=== PATIENT | male | born 1945 | race Caucasian/White ===

== ENCOUNTER → 2021-08-22 | Day surgery (SDC) | payer MEDICARE ==
[2021-08-20 09:41] VITALS: BMI 24.7
[~2021-08-22] MED LIST: ACETAMINOPHEN TAB 325 MG TAB PO SCH; ACETAMINOPHEN TAB 500 MG TAB PO PRN; BUPIVACAINE (PF) 0.25% 30 ML VIAL SQ ONE; DEXAMETHASONE SOD PHOSPHATE 4 MG/ML 1 ML VIAL IV ONE; HEPARIN SODIUM,PORCINE/PF 5,000 UNIT/0.5 ML SYRINGE SQ PRN; HYDROmorphone 0.5 MG/0.5 ML SYRINGE IVP PRN; IBUPROFEN 600 MG TAB PO SCH; LACTATED RINGERS 1,000 ML IV ONE; LACTATED RINGERS 1,000 ML IV SCH; LIDOCAINE 1% (10MG/ML) FOR IV START INTRADERMA PRN; ONDANSETRON 4 MG/2 ML VIAL IVP ONE; TAMSULOSIN 0.4 MG CAP.ER.24H PO ONE
[2021-08-22 08:35] LABS: HCT 40.1 % (39.0-53.0); HGB 14.2 gm/dL (13.0-17.5); MCHC 35.5 g/dL (31.0-37.0); MCV 93.1 fL (80.0-100.0); Mean Platelet Volume 7.7; Platelet Count 170 k/uL (150-450); RBC 4.31 m/uL (4.30-5.90); RDW 12.7 % (11.5-15.5); WBC 3.8 k/uL (3.8-10.6)
--- NOTE | 2021-08-22 08:36 | P.GSHP ---
History of Present Illness H&P Date: 08/22/21 Chief Complaint: Recurrent right inguinal hernia 76-year-old male underwent previous open repair of a right inguinal hernia in 1991. Diagnosed with a recurrent hernia that has gradually increased in size and symptoms. Here today for elective repair recurrent right inguinal hernia. No symptoms on the left. Past Medical History Past Medical History: Hyperlipidemia, Hypertension History of Any Multi-Drug Resistant Organisms: None Reported Past Surgical History: Hernia Repair Additional Past Surgical History / Comment(s): 1991 rt inguinal hernia w/ mesh,n ella procedure Past Anesthesia/Blood Transfusion Reactions: No Reported Reaction Additional Past Anesthesia/Blood Transfusion Reaction / Comment(s): no hx blood transfusion Smoking Status: Never smoker - Past Family History Father Family Medical History: Myocardial Infarction ([place]) Mother Additional Family Medical History / Comment(s): enlarged heart Medications and Allergies Home Medications Medication Instructions Recorded Confirmed Type Garlic 1 each PO DAILY 08/20/21 08/22/21 History Krill Oil 500 mg PO DAILY 08/20/21 08/22/21 History Multivitamins, Thera [Multivitamin 1 tab PO DAILY 08/20/21 08/22/21 History (formulary)] Saw [place] 500 mg PO DAILY 08/20/21 08/22/21 History Turmeric Root Extract [Turmeric] 500 mg PO DAILY 08/20/21 08/22/21 History lisinopriL [Zestril] 5 mg PO QAM 08/20/21 08/22/21 History Allergies Allergy/AdvReac Type Severity Reaction Status Date / Time No Known Allergies Allergy Verified 08/22/21 07:48 Surgical - Exam Vital Signs Temp Pulse Resp BP Pulse Ox 97.2 F L 71 16 150/75 97 08/22/21 07:45 08/22/21 07:45 08/22/21 07:45 08/22/21 07:45 08/22/21 07:45 Physical exam: General: Well-developed, well-nourished HEENT: Normocephalic, sclerae nonicteric Abdomen: Nontender, nondistended, reducible moderate-sized right inguinal hernia Extremities: No edema Neuro: Alert and oriented Assessment and Plan (1) Recurrent right inguinal hernia Narrative/Plan: Will proceed with repair recurrent right inguinal hernia. This will be performed laparoscopically with da Noelle robot with mesh, possible open, possible bilateral. Risks of bleeding, infection, recurrence, bladder and bowel injury, numbness, nerve injury, conversion to an open procedure were discussed with the patient. The patient understands and wishes to proceed. Current Visit: Yes Status: Acute Code(s): K40.91 - UNILATERAL INGUINAL HERNIA, W/O OBST OR GANGRENE, RECURRENT SNOMED Code(s): 591324206
--- NOTE | 2021-08-22 11:19 | P.OP ---
Date of Procedure: 08/22/21 Procedure(s) Performed: PREOPERATIVE DIAGNOSIS: Recurrent right inguinal hernia POSTOPERATIVE DIAGNOSIS: Same PROCEDURE: Repair recurrent right inguinal hernia laparoscopically with da Noelle assisted with mesh SURGEON: Dr. Mendoza ANESTHESIA: General OPERATIVE PROCEDURE DETAILS: Patient was placed in the operating table in the supine position. The patient was placed under general anesthesia. The abdomen was prepped and draped in usual sterile fashion. A small curvilinear supraumbilical incision was made. The fascia was retracted anteriorly with Magdalena forceps. The Veress needle was inserted. The saline drop test was normal. Insufflation took place to 15 mmHg. An 8 mm trocar was placed into the peritoneal cavity. 2 additional 8 mm trochars were placed in the right upper quadrant and left upper quadrant under visualization. The robotic arms were then brought in and docked into place. The fenestrated bipolar was used in the left arm and the laparoscopic al was utilized in the right arm. A 30 8 mm scope was used in the up position. The peritoneal cavity was inspected. Patient had an obvious large recurrent indirect right inguinal hernia. I could visualize some sutures from the previous repair. The peritoneum was incised in a horizontal fashion cephalad to the internal inguinal ring. Following that careful dissection of the preperitoneal space took place. This took place using both electrocautery, sharp dissection but primarily blunt dissection. Visualization of the pubic tubercle and Brian's ligament took place medially. Full dissection took place laterally as well. The hernia sac was fully dissected. Once we had adequate space the extra-large Bard 3-D mid mesh was advanced into the preperitoneal space and flattened out appropriately to cover all potential hernia sites. No sutures were used. The peritoneal defect was then closed using a absorbable 2-0 VLok suture. The hernia sac was incorporated into the peritoneal closure to help prevent future recurrence. The pneumoperitoneum was then evacuated. The skin of all 3 sites was closed using a 4-0 Monocryl stitch. Skin glue was then applied. HERNIA CHARACTERISTICS: Length: Approximately 10 cm Width: 2 cm Type: Recurrent inguinal TYPE OF MESH USED: Bard 3-D mid extra-large LOCATION OF MESH: Preperitoneal FIXATION: None DISPOSITION: Stable to recovery room
[2021-08-22 11:35] VITALS: TEMP 97.4
[2021-08-22 17:49] VITALS: BP 128/74; PULSE 70; RESP 8
== END ==
LOC: OR 06:58
PROVIDERS: ATTEND Surgery
DX: K40.91 Unilateral inguinal hernia, without obstruction or gangrene, recurrent (principal); E78.5 Hyperlipidemia, unspecified; I10 Essential (primary) hypertension; Z82.49 Family history of ischemic heart disease and other diseases of the circulatory system; I25.2 Old myocardial infarction
CPT/HCPCS: 49651; 93005; 85027; C1781; J1100; J0690; J2405; J1170; J1644

== ENCOUNTER → 2022-07-13 | Outpatient (CLI) | payer MEDICARE ==
--- NOTE | 2022-07-14 16:26 | NM ---
EXAMINATION TYPE: NM stress cardiolite complete DATE OF EXAM: 07/13/2022 COMPARISON: NONE HISTORY: I 25.10 TECHNIQUE: After the intravenous administration of 9.8 mCi Tc 99m Sestamibi - Rest images obtained 4 5 minutes post injection. The patient exercised using a CHAD protocol and 1 minute prior to peak e xercise was injected with 25.6 mCi Tc 99m Sestamibi - Stress images obtained 30 minutes post injectio n. FINDINGS: Targeted heart rate was achieved during performance of the study, patient achieved 103% predicted max imal heart rate. Review of stress and rest SPECT images demonstrates decreased uptake along the infer ior wall the left ventricle greater on rest images than on stress, some gut activity suspected. Towar ds the base the heart there is some decreased uptake along the septum greater on stress than on rest images. Gated analysis shows normal wall motion with an estimated left ventricular ejection fraction of 56 %. 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 Suspect denisse-infarct stress- induced left ventricular myocardial ischemia along the septum towards the base of the heart A Yellow level critical message alert has been initiated for Anjel Swenson MD via the [facility] Critical Results System on 07/14/2022 1:23 PM. This message alert has been sent to Anjel Swenson MD via the preferences provided by the clinician for the receipt of Radiology Critical Findings. Message ID [id number].
== END | disposition home or self-care (01) ==
LOC: RADNMMAIN 08:07
PROVIDERS: ATTEND Internal Medicine
DX: I25.10 Atherosclerotic heart disease of native coronary artery without angina pectoris (principal)
CPT/HCPCS: 93017; 78452; A9500

== ENCOUNTER → 2022-07-30 | Outpatient (CLI) | payer MEDICARE ==
[2022-07-31 05:05] LABS: HCT 42.5 % (39.6-50.0); HGB 14.1 g/dL (13.0-17.0); MCHC 33.2 g/dL (32.0-37.0); MCV 96.4 fL (80.0-97.0); Mean Platelet Volume 9.9 fL (9.5-12.2); NRBC Per 100 WBC 0 /100 WBCS (0.0-0.0); Platelet Count 192 X 10*3/uL (140-440); RBC 4.41 X 10*6/uL (4.40-5.60); RDW 12.1 % (11.5-14.5); WBC 3.79 X 10*3/uL (4.50-10.00)
[2022-07-31 05:07] LABS: African American GFR (CKD) 96.5 (60.0-200.0); Anion Gap 9.6 mmol/L (10.00-18.00); Blood Urea Nitrogen 23.3 mg/dL (9.0-27.0); Carbon Dioxide 25.4 mmol/L (20.0-27.5); Non-African American GFR(CKD) 83.3 (60.0-200.0); Potassium 4.5 mmol/L (3.5-5.5)
== END | disposition home or self-care (01) ==
LOC: LABPAT 14:10
PROVIDERS: ATTEND Internal Medicine Interventional Cardiology
DX: Z01.812 Encounter for preprocedural laboratory examination (principal); R94.39 Abnormal result of other cardiovascular function study
CPT/HCPCS: 80051; 82565; 84520; 85027

== ENCOUNTER 2022-08-10 06:30 | Day surgery (SDC) | payer MEDICARE ==
[2022-08-10] MEDS ORDERED: ALPRAZolam 0.5 MG TAB PO PRN (06:33)
[2022-08-10] MEDS ORDERED: NITROGLYCERIN SL TABS 0.4 MG TAB SUBLINGUAL PRN ×2 (06:33→08:53)
[2022-08-10] MEDS ORDERED: ASPIRIN 325 MG TAB PO STA (06:33)
[2022-08-10] MEDS ORDERED: HEPARIN SODIUM,PORCINE 2,500 UNIT in SODIUM CHLORIDE 0.9% 250 ML IRRIGATION PRN (06:33)
[2022-08-10] MEDS ORDERED: ALPRAZolam 0.25 MG TAB PO PRN (06:33)
[2022-08-10] MEDS ORDERED: HEPARIN SODIUM,PORCINE 10,000 UNIT in SODIUM CHLORIDE 0.9% 1,000 ML IRRIGATION PRN (06:33)
[2022-08-10] MEDS ORDERED: ATORVASTATIN 80 MG TAB PO STA (06:33)
[2022-08-10] MEDS ORDERED: SODIUM CHLORIDE 0.9% 1,000 ML IV ONE (06:38)
[2022-08-10] MEDS ORDERED: VERAPAMIL 2.5 MG/ML 2 ML AMP ONE (07:12)
[2022-08-10] MEDS ORDERED: HEPARIN SODIUM 1,000 UN/ML (10ML VL) ONE (07:27)
[2022-08-10] MEDS ORDERED: fentaNYL (PF) 50 MCG/ML 2 ML AMP ONE (07:27)
[2022-08-10] MEDS ORDERED: fentaNYL (PF) 50 MCG/ML 2 ML AMP IV ONE (07:37)
[2022-08-10] MEDS ORDERED: LIDOCAINE 1% INJ 10MG/ML (30 ML VIAL-PF) SQ ONE (07:37)
[2022-08-10] MEDS ORDERED: VERAPAMIL SYRINGE (5 MG/10 ML) INTRAARTER ONE (07:40)
[2022-08-10] MEDS: HEPARIN SODIUM 1,000 UN/ML (10ML VL) IV ONE ×3 (07:46→08:48)
[2022-08-10] MEDS ORDERED: CLOPIDOGREL 75 MG TAB ONE (07:52)
[2022-08-10] MEDS ORDERED: CLOPIDOGREL 75 MG TAB PO ONE (07:56)
[2022-08-10] MEDS ORDERED: IOPAMIDOL-370 125ML BTL INJ ONE (08:09)
[2022-08-10] MEDS ORDERED: IOPAMIDOL-370 100ML BTL INJ ONE (08:48)
[2022-08-10] MEDS ORDERED: ZOLPIDEM 5 MG TAB PO PRN (08:53)
[2022-08-10] MEDS ORDERED: ATROPINE SULFATE 0.1 MG/ML 10ML SYRINGE IV PRN (08:53)
[2022-08-10] MEDS ORDERED: MAG HYDROX/AL HYDROX/SIMETH 30 ML CUP PO PRN (08:53)
[2022-08-10] MEDS ORDERED: RX INFO: IV CONTRAST WAS GIVEN 1 EACH MISC MISCELLANE PRN (08:53)
[2022-08-10] MEDS ORDERED: SODIUM CHLORIDE 0.9% 1,000 ML in EMPTY BAG 1 BAG IV SCH (09:00)
--- NOTE | 2022-08-10 09:03 | P.CARDCATH ---
Date of Procedure: 08/10/22 Description of Procedure: Cardiac Catheterization: The patient is a 77-year-old male with a known history of hypertension, hyperlipidemia who has been complaining of progressive dyspnea on exertion. He had an abnormal calcium score and had an abnormal MPI. Recommendations were made regarding cardiac catheterization, the risks and the complications were discussed with the patient who is in full understanding and agreement. Procedure Description: Patient was brought to catheter finisher and inspector in fasting semi-sedated state after receiving Fentanyl and Benadryl achieiving moderate conscious sedated state. Using Xylocaine Anesthesia and Seldinger technique, a 6-Icelandic sheath was introduced in the right radial artery . Subsequently, selective coronary angiography was performed using a 5-Icelandic 3.5 bend Aden catheter. Multiple views of the coronary artery including hemiaxial views were obtained. The 5-Icelandic Pigatail catheter was used to cross the aortic valve and LVEDP was calculated. After removing the catheter a 6-Icelandic EBU 3.75 guiding catheter was introduced into system, after cannulating the left main a 0.014 balanced medium J-wire was introduced and positioned in the distal LAD subsequently a 3.5 x 23 mm Xience lisa point stent was advanced and deployed at 16 jessa, after removing the balloon 3.75 x 15 mm NC Treck was advanced and inflation at 12 jessa was done. After obtaining images the wire was advanced into the left circumflex with the help of a super cross microcatheter and positioned distally. After removing the microcatheter 2.5 x 12 mm Treck was advanced and multiple inflation at 8 jessa were done. After removing the balloon and with the help of a 6-Icelandic Spottlyzilla catheter 3.0 x 28 mm Xience lisa point was advanced and deployed at 16 jessa after removing the balloon 3.25 x 12 mm Xience lisa point stent was deployed proximally and dilated at 16 jessa. After the last inflation and after appropriate wait the balloon and the guidewire were withdrawn back into the catheter, images were obtained and revealed stable successful stenting. Following that, catheter and sheath were removed. Hemostasis was obtained with deployment of TR band . There was no immediate complication. Patient was returned to room in stable condition. Of note, the patient received a total of 7000 units of intravenous heparin as well as intra-arterial verapamil. He received oral loading dose of clopidogrel. His ACT was monitored. He had chest discomfort and mild EKG changes that resolved at the end of the procedure. Findings: Left main: This is a large size vessel, bifurcating into LAD and left circumflex, left main has no high-grade stenosis LAD: This is a large size vessel, reaches to the apex giving rise to 3 diagonal branch the third one is largest in caliber, the mid LAD has tandem lesion up to 80%, the rest of the vessel has mild intimal disease with no high-grade stenosis Left circumflex: This is a nondominant vessel, giving rise to a large obtuse marginal branch. The left circumflex is tortuous in the proximal segment. It has a long area of stenosis up to 90% involving the takeoff of the first obtuse marginal branch. RCA: This is a large dominant vessel, has a superior takeoff. The mid RCA has intimal disease of 20-30%, the distal vessel has a 50%. The PLV has a plaque of 50%, the rest of the vessel has no high-grade stenosis Left Ventriculogram: Not performed Hemodynamics: There was no gradient across the aortic valve, LVEDP was 14-16 mmHg Conclusion: 1. Severe stenosis in the mid LAD 2. Severe stenosis in the proximal left circumflex involving OM1 3. Moderate disease in the RCA 4. Successful stenting mid LAD with reduction of the stenosis from 80% to 0% 5. Successful stenting of the proximal left circumflex with reduction in stenosis from 90% to 0% Recommendations: The patient will continue on dual antiplatelet treatment with aspirin and Plavix for at least 6 months in addition to aggressive coronary risk modification. The findings and the recommendations were discussed with the patient and the family and they were in full understanding and agreement. Duration of sedation is 68 minutes.
[2022-08-10] MEDS: lisinopriL 5 MG TAB PO SCH (12:41)
[2022-08-10] MEDS: SODIUM CHLORIDE 0.9% 1,000 ML in EMPTY BAG 1 BAG IV SCH ×2 (12:41→23:13)
[2022-08-10 14:36] VITALS: BMI 24.6
[2022-08-10] MEDS ORDERED: ATORVASTATIN 40 MG TAB PO SCH (21:00)
[2022-08-11 06:09] LABS: African American GFR (CKD) >90 (>60 ml/min/1.73 sqM); Anion Gap 5 mmol/L; Blood Urea Nitrogen 15 mg/dL (9-20); Calcium 8.7 mg/dL (8.4-10.2); Carbon Dioxide 28 mmol/L (22-30); Chloride 107 mmol/L (98-107); Glucose 101 mg/dL (74-99); Non-African American GFR(CKD) >90 (>60 ml/min/1.73 sqM); Potassium 4.2 mmol/L (3.5-5.1); Sodium 140 mmol/L (137-145)
--- NOTE | 2022-08-11 07:18 | P.PN ---
Subjective Progress Note Date: 08/11/22 PROGRESS NOTE The patient is a 77-year-old male with a known history of hypertension and hyperlipidemia, abnormal MPI who underwent cardiac catheterization yesterday, was found to have critical stenosis involving the LAD and left circumflex with moderate to significant disease in the right PLV. He underwent stenting of the left circumflex and the LAD. He is doing well this morning. He denies any ches t discomfort, dizziness or palpitations. He continues to be in sinus mechanism. Medications: Aspirin once a day, Plavix 75 mg daily, lisinopril 5 mg daily, Lipitor 40 mg daily PHYSICAL EXAMINATION: Blood pressure 145/80 heart rate 90 LUNGS: Clear to auscultation Heart: Regular rate and rhythm, S1-S2, systolic murmur at the base] ABDOMEN: Soft, nontender, no organomegaly EXTREMETIES: No edema, right radial pulse intact LAB: Sinus mechanism with no acute ST segment changes, potassium 4.2, BUN 15, creatinine 0.73 IMPRESSION: 1. Status post stenting of the LAD and left circumflex 2. Moderate to severe disease in the right PLV 3. Hypertension 4. Hyperlipidemia PLAN: 1. Continue present therapy 2. Increase physical activity 3. Discharged home today 4. And follow-up in one week and depending on his progress further recommendations will be made regarding his PLV territory Objective - Vital Signs Vital signs: Vital Signs Temp 98.1 F 08/11/22 02:53 Pulse 99 08/11/22 02:53 Resp 18 08/11/22 02:53 BP 145/88 08/11/22 02:53 Pulse Ox 95 08/11/22 02:53 FiO2 Intake & Output 08/10/22 08/11/22 08/11/22 18:59 06:59 18:59 Intake Total 760 Output Total 600 Balance 160 Weight 81.2 kg Intake: IV 400 Oral 360 Output: Urine 600 Other: Voiding Method Toilet # Voids 3 2 - Labs CBC & Chem 7: 08/11/22 05:33 Labs: Abnormal Lab Results - Last 24 Hours (Table) 08/11/22 Range/Units 05:33 Glucose 101 H (74-99) mg/dL
[2022-08-11] MEDS: lisinopriL 5 MG TAB PO SCH (07:39)
[2022-08-11 08:39] VITALS: BP 148/85; PULSE 76; RESP 16; TEMP 97.6
[2022-08-11] MEDS ORDERED: CLOPIDOGREL 75 MG TAB PO SCH (09:00)
[2022-08-11] MEDS ORDERED: ASPIRIN 81 MG PO SCH (09:00)
== END 2022-08-11 09:16 | disposition home or self-care (01) ==
LOC: CATHCVL 06:30 → 6NMEDSUR 11:15 → CATHCVL 08-11 09:16
PROVIDERS: ATTEND Internal Medicine Interventional Cardiology
DX: I25.10 Atherosclerotic heart disease of native coronary artery without angina pectoris (principal); I10 Essential (primary) hypertension; E78.2 Mixed hyperlipidemia; Z95.5 Presence of coronary angioplasty implant and graft; Z79.82 Long term (current) use of aspirin; Z82.49 Family history of ischemic heart disease and other diseases of the circulatory system; Z87.891 Personal history of nicotine dependence
CPT/HCPCS: 93458; 80048; C9600; C1769 ×4; C1887 ×3; C1894; C1725 ×2; C1874 ×3; J2001; J3010; J1644; Q9967 ×2

== ENCOUNTER 2023-08-24 06:54 | Day surgery (SDC) | payer MEDICARE ==
[2023-08-20 09:28] VITALS: BMI 24.8
[~2023-08-24 06:54] MED LIST changes: -ACETAMINOPHEN TAB 325 MG TAB PO SCH; -ACETAMINOPHEN TAB 500 MG TAB PO PRN; -BUPIVACAINE (PF) 0.25% 30 ML VIAL SQ ONE; -DEXAMETHASONE SOD PHOSPHATE 4 MG/ML 1 ML VIAL IV ONE; -HEPARIN SODIUM,PORCINE/PF 5,000 UNIT/0.5 ML SYRINGE SQ PRN; -HYDROmorphone 0.5 MG/0.5 ML SYRINGE IVP PRN; -IBUPROFEN 600 MG TAB PO SCH; -LACTATED RINGERS 1,000 ML IV ONE; -ONDANSETRON 4 MG/2 ML VIAL IVP ONE; -TAMSULOSIN 0.4 MG CAP.ER.24H PO ONE
[2023-08-24 07:22] VITALS: TEMP 98
[2023-08-24] MEDS ORDERED: PROPOFOL 10 MG/ML 20 ML VIAL IV ONE (07:53)
--- NOTE | 2023-08-24 07:56 | P.GSHP ---
History of Present Illness H&P Date: 08/24/23 Chief Complaint: Colon cancer screening 78-year-old male here for colonoscopy. Last colonoscopy 12 years ago. No bowel complaints. Past Medical History Past Medical History: Hyperlipidemia, Hypertension Additional Past Medical History / Comment(s): high enzymes last blood drawn 08/11/23 History of Any Multi-Drug Resistant Organisms: None Reported Past Surgical History: Heart Catheterization With Stent, Hernia Repair, Orthopedic Surgery, Tonsillectomy Additional Past Surgical History / Comment(s): 1991 rt inguinal hernia w/ mesh ,nasal procedure, redone 2021, hand left index finger Past Anesthesia/Blood Transfusion Reactions: No Reported Reaction Additional Past Anesthesia/Blood Transfusion Reaction / Comment(s): no hx blood transfusion Date of Last Stent Placement:: 2021 Smoking Status: Never smoker - Past Family History Father Family Medical History: Myocardial Infarction ([place]) Mother Additional Family Medical History / Comment(s): enlarged heart Medications and Allergies Home Medications Medication Instructions Recorded Confirmed Type Garlic 1 each PO DAILY 08/20/21 08/20/23 History Multivitamins, Thera [Multivitamin 1 tab PO DAILY 08/20/21 08/20/23 History (formulary)] Saw [place] 500 mg PO DAILY 08/20/21 08/20/23 History lisinopriL [Zestril] 5 mg PO QAM 08/20/21 08/20/23 History Aspirin EC [Ecotrin Low Dose] 81 mg PO DAILY 08/06/22 08/20/23 History Atorvastatin [Lipitor] 40 mg PO HS #90 tab 08/11/22 08/20/23 Rx Clopidogrel [Plavix] 75 mg PO DAILY #90 tab 08/11/22 08/20/23 Rx Nitroglycerin Sl Tabs [Nitrostat] 0.4 mg SUBLINGUAL Q5M PRN #25 tab 08/11/22 08/20/23 Rx Allergies Allergy/AdvReac Type Severity Reaction Status Date / Time No Known Allergies Allergy Verified 08/24/23 07:10 Surgical - Exam Vital Signs Temp Pulse Resp BP Pulse Ox 98.0 F 83 16 153/80 98 08/24/23 07:18 08/24/23 07:18 08/24/23 07:18 08/24/23 07:18 08/24/23 07:18 Physical exam: General: Well-developed, well-nourished HEENT: Normocephalic, sclerae nonicteric Abdomen: Nontender, nondistended Extremities: No edema Neuro: Alert and oriented Assessment and Plan (1) Colon cancer screening Narrative/Plan: Will proceed with colonoscopy at this time. Current Visit: Yes Status: Acute Code(s): Z12.11 - ENCOUNTER FOR SCREENING FOR MALIGNANT NEOPLASM OF COLON SNOMED Code(s): 583554465
--- NOTE | 2023-08-24 08:10 | P.PCN ---
Date of Procedure: 08/24/23 Procedure(s) Performed: PREOPERATIVE DIAGNOSIS: Colon cancer screening POSTOPERATIVE DIAGNOSIS: Cecal polyp PROCEDURE: Colonoscopy with snare polypectomy ANESTHESIA: MAC SURGEON: Stephen Mendoza M.D. SPECIMENS: Polyp ENDOSCOPIC PROCEDURE: The patient was placed on the endoscopy table in the left decubitus position. The Olympus colonoscope was inserted into the anus and passed under direct visualization to the base of the cecum. The appendiceal orifice was visualized. From that point the scope was slowly withdrawn inspecting all surfaces carefully. There was a small polyp on the cecal valve. This was removed using the cold snare technique. The remainder of the cecum, ascending, transverse, descending, sigmoid and rectum appeared normal. There was mild left-sided diverticulosis noted. Digital rectal examination was normal. The patient was taken to the recovery room in stable condition per anesthesia guidelines. RECOMMENDATIONS: Resume diet. Await biopsy results.
[2023-08-24 08:37] VITALS: BP 141/71; PULSE 67; RESP 20
== END 2023-08-24 08:52 | disposition home or self-care (01) ==
LOC: ORWHC2ENDO 06:54
PROVIDERS: ATTEND Surgery
DX: Z12.11 Encounter for screening for malignant neoplasm of colon (principal); D12.0 Benign neoplasm of cecum; I10 Essential (primary) hypertension; E78.5 Hyperlipidemia, unspecified; I25.10 Atherosclerotic heart disease of native coronary artery without angina pectoris; E88.09 Other disorders of plasma-protein metabolism, not elsewhere classified; Z98.890 Other specified postprocedural states; Z79.02 Long term (current) use of antithrombotics/antiplatelets; Z79.82 Long term (current) use of aspirin; Z79.899 Other long term (current) drug therapy
CPT/HCPCS: 88305; 45385; J2704

== ENCOUNTER → 2023-09-22 | Outpatient (CLI) | payer MEDICARE ==
[2023-09-22 07:55] LABS: African American GFR (CKD) >90 (>60 ml/min/1.73 sqM); Blood Urea Nitrogen 22 mg/dL (9-20); Non-African American GFR(CKD) >90 (>60 ml/min/1.73 sqM)
--- NOTE | 2023-09-22 13:48 | CT ---
EXAMINATION TYPE: CT abdomen pelvis w con DATE OF EXAM: 09/22/2023 COMPARISON: Outside ultrasound September 14, 2023 HISTORY: Abnormal US, patient having no symptoms. CT DLP: 594.3 mGycm, Automated Exposure Control for Dose Reduction was Utilized. CONTRAST: CT scan of the abdomen and pelvis is performed with oral and with IV Contrast, patient injected with 100ml mL of Isovue 300. FINDINGS: LUNG BASES: No significant abnormality is appreciated. LIVER/GB: Subcentimeter in just over 1.0 cm round low density lesions throughout the liver are consis tent with benign thin-walled cysts. PANCREAS: No significant abnormality is seen. SPLEEN: No significant abnormality is seen. ADRENALS: No significant abnormality is seen. KIDNEYS: Symmetrically measured uptake and excretion without hydronephrosis seen bilaterally. There i s nonspecific heterogeneous slightly hypodense lesion in the left kidney upper pole level posteriorly measuring 3.2 x 2.7 cm delayed axial image 25 series 7. Extending from the anterolateral aspect of t he upper to mid pole of the right kidney there is a heterogeneous circumscribed oval lesion measuring 5.1 x 4.2 cm axial image 26 believed to be corresponding to the vascular lesion of concern on recent ultrasound. BOWEL: Oral contrast does not reach colonic level. Mild to moderate colonic fecal prominence in the r ight colon. No abnormal small or large bowel dilatation. PROSTATE/SEMINAL VESICLES: Mildly enlarged prostate gland consistent with BPH.. LYMPH NODES: No greater than 1cm abdominal or pelvic lymph nodes are appreciated. OSSEOUS STRUCTURES: Moderate disc space narrowing and spurring at L2-L3 level. Moderate disc space na rrowing second disc phenomenon at L4-L5 level. Moderate narrowing of both hip joints. OTHER: No additional significant abnormality. IMPRESSION: Oval circumscribed heterogeneous hyperdense 5.1 cm exophytic mass from the anterolateral aspect of the midpole right kidney corresponds to the area of concern on recent ultrasound. Solid re nal mass or renal cell carcinoma needs to be considered given the ultrasound appearance. There is sec ond suspicious 3.2 cm lesion posteriorly in the upper pole of the left kidney in which second solid m ass or neoplasm cannot be excluded. A proteinaceous or hemorrhagic cyst is not completely excluded. A dvise correlating with ultrasound and/or possibly MRI. No suspicious adenopathy or metastatic disease .
== END | disposition home or self-care (01) ==
LOC: RADCTMAIN 07:12
PROVIDERS: ATTEND Internal Medicine
DX: I99.9 Unspecified disorder of circulatory system (principal); N28.89 Other specified disorders of kidney and ureter
CPT/HCPCS: 82565; 84520; 74177; 36415; Q9967

== ENCOUNTER → 2023-10-08 | Outpatient (CLI) | payer MEDICARE ==
--- NOTE | 2023-10-12 18:33 | MR ---
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 Ultrasound 09/14/2023. TECHNIQUE: Multiplanar multi-sequence imaging was performed without contrast. Post contrast imaging was performed. Post IV contrast subtraction images were also submitted for review. IV Contrast: 8 cc Gadobutrol FINDINGS: LOWER CHEST: No gross irregularity. ABDOMEN Liver: No evidence for hepatic steatosis or cirrhosis. Scattered high T2 signal simple cyst. Cysts. Gallbladder and Bile ducts: No evidence for ductal dilation, or biliary stricture or evidence of chol edocholithiasis. The gallbladder is within normal limits. Pancreas: No ductal dilation. No evidence for solid mass. Spleen: Normal for size. Adrenal glands: Unremarkable. Kidneys: Right renal lesion which is predominantly exophytic measuring 5.2 x 4.8 x 5.7 cm which is low T2 hete rogenous T1 with areas of high T1 intrinsic signal. There is subtle heterogenous curvilinear enhancem ent present. The the present on subtraction imaging. Left renal lesion which is not endophytic measuring 2.7 x 2.5 x 2.4 cm which is low T2 heterogenous T1 with areas of high T1 intrinsic signal. There is subtle heterogenous curvilinear enhancement prese nt. The the present on subtraction imaging Was superiorly in the left kidney is a nodular lesion with areas of intrinsic high Tr 1 signal measur ing 1.3 x 1.6 x 1.4 cm. This lesion is also low T2 low T1 signal. With evidence of heterogenous curvi linear postcontrast enhancement. There is increased signal on chemical shift of phase imaging. No evidence for obstructive uropathy bilaterally.. Stomach and Bowel: No evidence for bowel wall thickening or evidence for obstruction.. Peritoneum: No evidence of pneumoperitoneum or free fluid. Vasculature: No aortic aneurysm. Musculoskeletal: The osseous structures appear intact. Lymph Nodes: No gross evidence for lymphadenopathy. Abdominal wall: Unremarkable. IMPRESSION: Bilateral renal lesions with minimal curvilinear enhancement. 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 Findings felt to be less likely neoplas tic but not excluded. Short-term follow-up in 3-6 months recommended.
== END | disposition home or self-care (01) ==
LOC: RADMRIMAIN 16:26
PROVIDERS: ATTEND Urology
DX: D41.01 Neoplasm of uncertain behavior of right kidney (principal); N28.89 Other specified disorders of kidney and ureter
CPT/HCPCS: 74183; A9585

== ENCOUNTER → 2023-12-31 | Outpatient (CLI) | payer MEDICARE ==
[2023-12-31 15:42] LABS: ALT 27 U/L (10-49); AST 27 U/L (14-35); Chol/HDL Ratio 3.84 Ratio; LDL Cholesterol,Calculated 139.7 mg/dL (0.0-131.0); VLDL Calculation 8.92 mg/dL (5.00-40.00)
== END | disposition home or self-care (01) ==
LOC: LABWHC1 07:45
PROVIDERS: ATTEND Internal Medicine Interventional Cardiology
DX: E78.2 Mixed hyperlipidemia (principal)
CPT/HCPCS: 36415; 80061; 84450; 84460

== ENCOUNTER → 2024-02-15 | Outpatient (CLI) | payer MEDICARE ==
--- NOTE | 2024-02-15 14:59 | MR ---
EXAMINATION TYPE: MR kidney wo/w con DATE OF EXAM: 02/15/2024 2:46 PM CLINICAL INDICATION:Male, 79 years old with history of D41.02 NEOPLASM OF UNCERTAIN BEHAVIOR OF LEFT KIDN; PHH, Left renal mass. COMPARISON: CT scan abdomen from 09/22/2023, MRI 10/08/2023 Ultrasound 09/06/2023.. TECHNIQUE: Multiplanar multi-sequence imaging was performed without contrast. Post contrast imaging was performed. Post IV contrast subtraction images were also submitted for review. IV Contrast: 8 cc Gadavist FINDINGS: LOWER CHEST: No gross irregularity. ABDOMEN Liver: No evidence for hepatic steatosis or cirrhosis. Scattered high T2 signal cysts are seen throug hout the liver. Gallbladder and Bile ducts: Gallbladder is nondistended. No evidence for ductal dilation. Pancreas: No ductal dilation. No evidence for solid mass. Spleen: Normal for size. Adrenal glands: Unremarkable. Kidneys: No evidence for obstructive uropathy. No suspicious renal masses. Right renal lesion, and low T2 signal lesion measuring 57 x 50 mm. Left inferior renal lesion which is heterogenous T2 signal measuring 32 x 20 mm. Left superior renal lesion which is heterogenous measuring 19 mm. All these lesions have evidence of postcontrast enhancement centrally. Stomach and Bowel: No evidence for bowel wall thickening or evidence for obstruction. Retroperitoneum/Peritoneum: No evidence of pneumoperitoneum or free fluid. Vasculature: No aortic aneurysm. Musculoskeletal: The osseous structures appear intact. Lymph Nodes: No gross evidence for lymphadenopathy. Abdominal wall: Unremarkable. IMPRESSION: Bilateral renal masses the largest on the right measuring up to 5.7 cm and 2 lesions on the left fran uring up to 32 mm. These lesions are not significantly changed in size given given differences in sli ce selection. There remains suspicious for renal cell carcinoma until proven otherwise. No evidence f or lymphadenopathy. Consider tissue sampling for definitive diagnosis.
== END | disposition home or self-care (01) ==
LOC: RADMRIMAIN 13:26
PROVIDERS: ATTEND Urology
DX: D41.02 Neoplasm of uncertain behavior of left kidney (principal); N28.89 Other specified disorders of kidney and ureter
CPT/HCPCS: 74183; A9585

== ENCOUNTER 2025-01-09 05:31 | Emergency (ER) | payer MEDICARE ==
[2025-01-09 06:02] LABS: Basophils % (A) 0 %; Eosinophils # (A) 0.1 k/uL (0-0.7); Eosinophils % (A) 1 %; HCT 45.6 % (39.0-53.0); HGB 15.6 gm/dL (13.0-17.5); Lymphocytes # (A) 1.1 k/uL (1.0-4.8); Lymphocytes % (A) 14 %; MCH 32.3 pg (25.0-35.0); MCHC 34.3 g/dL (31.0-37.0); MCV 94.2 fL (80.0-100.0); Mean Platelet Volume 7.1; Monocytes # (A) 0.7 k/uL (0-1.0); Monocytes % (A) 9 %; Neutrophils # (A) 6.4 k/uL (1.3-7.7); Neutrophils % (A) 76 %; Platelet Count 235 k/uL (150-450); RBC 4.84 m/uL (4.30-5.90); WBC 8.4 k/uL (3.8-10.6)
--- NOTE | 2025-01-09 06:29 | XR ---
EXAMINATION TYPE: XR KUB DATE OF EXAM: 01/09/2025 6:20 AM CLINICAL INDICATION: Male, 79 years old with history of abdominal pain, pain TECHNIQUE: 1 upright view of the abdomen. COMPARISON: CT abdomen and pelvis September 22, 2023. FINDINGS: Scattered gas is seen in non-distended small bowel loops. Gas and fecal material is seen in non-distended colon. Mild to moderate colonic fecal prominence in the lower abdomen and pelvis. Ther e is no visceromegaly, pneumoperitoneum, or abnormal calcification appreciated. The lung bases are cl ear and the osseous structures are intact. IMPRESSION: Overall nonobstructive bowel gas pattern. Mild/moderate diffuse colonic fecal prominence and/or const ipation. [facility], , 01/09/2025 6:26 AM
[2025-01-09 06:36] LABS: ALT 18 U/L (4-49); AST 39 U/L (17-59); African American GFR (CKD) >90 (>60 ml/min/1.73 sqM); Albumin 4.2 g/dL (3.5-5.0); Alkaline Phosphatase 82 U/L (38-126); Anion Gap 10 mmol/L; Blood Urea Nitrogen 17 mg/dL (9-20); Calcium 9.1 mg/dL (8.4-10.2); Carbon Dioxide 25 mmol/L (22-30); Chloride 102 mmol/L (98-107); Glucose 130 mg/dL (74-99); Non-African American GFR(CKD) >90 (>60 ml/min/1.73 sqM); Potassium 4.1 mmol/L (3.5-5.1); Sodium 137 mmol/L (137-145); Total Bilirubin 1.3 mg/dL (0.2-1.3); Total Protein 7.3 g/dL (6.3-8.2)
[2025-01-09 06:48] LABS: Influenza A Not Detected (Not Detectd); Influenza B Not Detected (Not Detectd); RSV Not Detected (Not Detectd)
[2025-01-09 07:43] LABS: Appearance,Urine Clear (Clear); Bilirubin,Urine Negative (Negative); Blood,Urine Small (Negative); Color,Urine Yellow; Glucose,Urine (UA) Negative (Negative); Ketones,Urine Negative (Negative); Leukocyte Esterase,Urine Negative (Negative); Mucus,Urine Moderate /hpf; Nitrite,Urine Negative (Negative); Protein,Urine 2+ (Negative); RBC,Urine 10 /hpf (0-5); Specific Gravity,Urine 1.019 (1.001-1.035); Squamous Epithelial Cell,Urine <1 /hpf (0-4); Urobilinogen,Urine <2.0 mg/dL (<2.0); WBC,Urine 3 /hpf (0-5)
--- NOTE | 2025-01-09 08:12 | ED ---
General Adult HPI - General Chief complaint: Abdominal Pain Stated complaint: abd pain Time Seen by Provider: 01/09/25 06:12 Source: patient, RN notes reviewed Mode of arrival: ambulatory - History of Present Illness Initial comments: 79-year-old male presents to the emergency department for evaluation of right- sided abdominal pain radiating to his right flank. Patient states that this started yesterday afternoon around 3 PM. He notes that the pain was not severe at that time. He states that it has waxed and waned since then. He does report increased urinary frequency. Denies any pain with urination. Reports a prior abdominal hernia repair but no other abdominal surgeries. He denies any recent fever, chills. Admits to nausea without vomiting. Admits to normal bowel movements. - Related Data Home Medications Medication Instructions Recorded Confirmed Garlic 1 each PO DAILY 08/20/21 08/20/23 Multivitamins, Thera [Multivitamin 1 tab PO DAILY 08/20/21 08/20/23 (formulary)] Saw [place] 500 mg PO DAILY 08/20/21 08/20/23 lisinopriL [Zestril] 5 mg PO QAM 08/20/21 08/20/23 Aspirin EC [Ecotrin Low Dose] 81 mg PO DAILY 08/06/22 08/20/23 Previous Rx's Medication Instructions Recorded Atorvastatin [Lipitor] 40 mg PO HS #90 tab 08/11/22 Clopidogrel [Plavix] 75 mg PO DAILY #90 tab 08/11/22 Nitroglycerin Sl Tabs [Nitrostat] 0.4 mg SUBLINGUAL Q5M PRN #25 tab 08/11/22 Allergies Allergy/AdvReac Type Severity Reaction Status Date / Time No Known Allergies Allergy Verified 01/09/25 05:38 Review of Systems ROS Statement: Those systems with pertinent positive or pertinent negative responses have been documented in the HPI. ROS Other: All systems not noted in ROS Statement are negative. Past Medical History Past Medical History: Hyperlipidemia, Hypertension Additional Past Medical History / Comment(s): high enzymes last blood drawn 08/11/23 History of Any Multi-Drug Resistant Organisms: None Reported Past Surgical History: Hernia Repair Additional Past Surgical History / Comment(s): 1991 rt inguinal hernia w/ mesh,nasal procedure Past Anesthesia/Blood Transfusion Reactions: No Reported Reaction Additional Past Anesthesia/Blood Transfusion Reaction / Comment(s): no hx blood transfusion Date of Last Stent Placement:: 2021 Past Psychological History: No Psychological Hx Reported Smoking Status: Never smoker - Past Family History Father Family Medical History: Myocardial Infarction ([place]) Mother Additional Family Medical History / Comment(s): enlarged heart General Exam Limitations: no limitations General appearance: alert, in no apparent distress Head exam: Present: atraumatic, normocephalic, normal inspection Eye exam: Present: normal appearance, PERRL, EOMI. Absent: scleral icterus, con junctival injection, periorbital swelling ENT exam: Present: normal exam, mucous membranes moist Respiratory exam: Present: normal lung sounds bilaterally. Absent: respiratory distress, wheezes, rales, rhonchi, stridor Cardiovascular Exam: Present: regular rate, normal rhythm, normal heart sounds. Absent: systolic murmur, diastolic murmur, rubs, gallop, clicks GI/Abdominal exam: Present: soft, tenderness, normal bowel sounds. Absent: distended, guarding, rebound, rigid Extremities exam: Present: normal inspection, full ROM, normal capillary refill. Absent: tenderness, pedal edema, joint swelling, calf tenderness Back exam: Present: normal inspection Neurological exam: Present: alert, oriented X3 Psychiatric exam: Present: normal affect, normal mood Skin exam: Present: warm, dry, intact, normal color. Absent: rash Course Vital Signs 01/09/25 01/09/25 05:33 09:22 Temperature 99.2 F 98 F Pulse Rate 91 84 Respiratory 18 16 Rate Blood Pressure 172/96 149/81 O2 Sat by Pulse 97 97 Oximetry Medical Decision Making - Medical Decision Making Was pt. sent in by a medical professional or institution (, PA, ACTIVE DIRECTORY ENGINEER, urgent care, hospital, or usp...) When possible be specific @ -No Did you speak to anyone other than the patient for history (EMS, parent, family, police, friend...)? What history was obtained from this source @ -No Did you review nursing and triage notes (agree or disagree)? Why? @ -I reviewed and agree with nursing and triage notes Were old charts reviewed (outside hosp., previous admission, EMS record, old E KG, old radiological studies, urgent care reports/EKG's, usp records)? Report findings @ -No old charts were reviewed Differential Diagnosis (chest pain, altered mental status, abdominal pain women, abdominal pain men, vaginal bleeding, weakness, fever, dyspnea, syncope, headache, dizziness, GI bleed, back pain, seizure, CVA, palpatations, mental health, musculoskeletal)? @ -Differential Abdominal Pain Men: Appendicitis, cholecystitis, diverticulosis, ischemic bowel, pancreatitis, h epatitis, UTI, gastroenteritis, AAA, incarcerated hernia, bowel obstruction, constipation, inflammatory bowel, hepatitis, peptic ulcer disease, splenic infarction, perforated viscus, testicular torsion, this is not meant to be an all-inclusive list EKG interpreted by me (3pts min.). @ -None X-rays interpreted by me (1pt min.). @ -Abdominal x-ray shows nonspecific bowel gas pattern, fecal material throughout the colon CT interpreted by me (1pt min.). @ -CT abdomen pelvis shows U/S interpreted by me (1pt. min.). @ -None done What testing was considered but not performed or refused? (CT, X-rays, U/S, labs)? Why? @ -None What meds were considered but not given or refused? Why? @ -None Did you discuss the management of the patient with other professionals (professionals i.e. , PA, ACTIVE DIRECTORY ENGINEER, lab, RT, psych nurse, social media content manager, information technology associate, teacher, command center officer, director of casework)? Give summary @ -I discussed the case with Dr. Olvera, urology who reviewed the scans. He is not overly concerned about the subcapsular hematoma advised follow-up with his Sylvain Johnson urologist Was smoking cessation discussed for >3mins.? @ -No Was critical care preformed (if so, how long)? @ -No Were there social determinants of health that impacted care today? How? (Homelessness, low income, unemployed, alcoholism, drug addiction, transportation, low edu. Level, literacy, decrease access to med. care, fdc, rehab)? @ -No Was there de-escalation of care discussed even if they declined (Discuss DNR or withdrawal of care, Hospice)? DNR status @ -No What co-morbidities impacted this encounter? (DM, HTN, Smoking, COPD, CAD, Cancer, CVA, ARF, Chemo, Hep., AIDS, mental health diagnosis, sleep apnea, morbi d obesity)? @ -None Was patient admitted / discharged? Hospital course, mention meds given and rout e, prescriptions, significant lab abnormalities, going to OR and other pertinent info. @ -DischargedPatient presented to the emergency department for evaluation of right-sided abdominal pain laboratory studies obtained revealing no significant leukocytosis, hemoglobin 15.6; CMP on actionable; UA shows 2+ protein, small blood, 10 RBCs. Patient was negative for COVID, influenza, RSV. KUB x-ray sh ows nonspecific bowel gas pattern with large stool burden present. CT abdomen pelvis reveals an enlarging right renal heterogenous hyperdense mass measuring 6.5 cm there is a new curvilinear subcapsular hematoma involving the right kidney. There is also redemonstration of 2 hyperdense left renal lesions I discussed the case with Dr. Olvera regarding the subcapsular hematoma on the right kidney who believes that the patient can follow-up with Dr. Bains at [facility] the patient's urologist as the patient's hemoglobin is stable and he has minimal blood in the urine. I discussed the findings with the patient. He will be discharged home. He is understanding and agreeable with this plan. P atient stable at time of discharge. Case discussed with Dr. Wall. Undiagnosed new problem with uncertain prognosis? @ -No Drug Therapy requiring intensive monitoring for toxicity (Heparin, Nitro, In sulin, Cardizem)? @ -No Were any procedures done? @ -No Diagnosis/symptom? @ -Renal mass, hematuria Acute, or Chronic, or Acute on Chronic? @ -Acute Uncomplicated (without systemic symptoms) or Complicated (systemic symptoms)? @ -Uncomplicated Side effects of treatment? @ -No Exacerbation, Progression, or Severe Exacerbation? @ -No Poses a threat to life or bodily function? How? (Chest pain, [place], [place], pneumonia, PE, COPD, DKA, ARF, appy, cholecystitis, CVA, Diverticulitis, Homicidal, Suici claudia, threat to staff... and all critical care pts) @ -No - Lab Data Result diagrams: 01/09/25 05:42 01/09/25 05:42 Lab Results 01/09/25 01/09/25 01/09/25 Range/Units 05:42 05:42 05:42 WBC 8.4 (3.8-10.6) k/uL RBC 4.84 (4.30-5.90) m/uL Hgb 15.6 (13.0-17.5) gm/dL Hct 45.6 (39.0-53.0) % MCV 94.2 (80.0-100.0) fL MCH 32.3 (25.0-35.0) pg MCHC 34.3 (31.0-37.0) g/dL RDW 12.0 (11.5-15.5) % Plt Count 235 (150-450) k/uL MPV 7.1 Neutrophils % 76 % Lymphocytes % 14 % Monocytes % 9 % Eosinophils % 1 % Basophils % 0 % Neutrophils # 6.4 (1.3-7.7) k/uL Lymphocytes # 1.1 (1.0-4.8) k/uL Monocytes # 0.7 (0-1.0) k/uL Eosinophils # 0.1 (0-0.7) k/uL Basophils # 0.0 (0-0.2) k/uL Sodium 137 (137-145) mmol/L Potassium 4.1 (3.5-5.1) mmol/L Chloride 102 (98-107) mmol/L Carbon Dioxide 25 (22-30) mmol/L Anion Gap 10 mmol/L BUN 17 (9-20) mg/dL Creatinine 0.70 (0.66-1.25) mg/dL Est GFR (CKD-EPI)AfAm >90 (>60 ml/min/1.73 sqM) Est GFR (CKD-EPI)NonAf >90 (>60 ml/min/1.73 sqM) Glucose 130 H (74-99) mg/dL Calcium 9.1 (8.4-10.2) mg/dL Total Bilirubin 1.3 (0.2-1.3) mg/dL AST 39 (17-59) U/L ALT 18 (4-49) U/L Alkaline Phosphatase 82 (38-126) U/L Total Protein 7.3 (6.3-8.2) g/dL Albumin 4.2 (3.5-5.0) g/dL Urine Color Urine Appearance (Clear) Urine pH (5.0-8.0) Ur Specific [place] (1.001-1.035) Urine Protein (Negative) Urine Glucose (UA) (Negative) Urine Ketones (Negative) Urine Blood (Negative) Urine Nitrite (Negative) Urine Bilirubin (Negative) Urine Urobilinogen (<2.0) mg/dL Ur Leukocyte Esterase (Negative) Urine RBC (0-5) /hpf Urine WBC (0-5) /hpf Ur Squamous Epith Cells (0-4) /hpf Urine Mucus (None) /hpf Influenza Type A (PCR) Not Detected (Not Detectd) Influenza Type B (PCR) Not Detected (Not Detectd) RSV (PCR) Not Detected (Not Detectd) SARS-CoV-2 (PCR) Not Detected (Not Detectd) 01/09/25 Range/Units 06:58 WBC (3.8-10.6) k/uL RBC (4.30-5.90) m/uL Hgb (13.0-17.5) gm/dL Hct (39.0-53.0) % MCV (80.0-100.0) fL MCH (25.0-35.0) pg MCHC (31.0-37.0) g/dL RDW (11.5-15.5) % Plt Count (150-450) k/uL MPV Neutrophils % % Lymphocytes % % Monocytes % % Eosinophils % % Basophils % % Neutrophils # (1.3-7.7) k/uL Lymphocytes # (1.0-4.8) k/uL Monocytes # (0-1.0) k/uL Eosinophils # (0-0.7) k/uL Basophils # (0-0.2) k/uL Sodium (137-145) mmol/L Potassium (3.5-5.1) mmol/L Chloride (98-107) mmol/L Carbon Dioxide (22-30) mmol/L Anion Gap mmol/L BUN (9-20) mg/dL Creatinine (0.66-1.25) mg/dL Est GFR (CKD-EPI)AfAm (>60 ml/min/1.73 sqM) Est GFR (CKD-EPI)NonAf (>60 ml/min/1.73 sqM) Glucose (74-99) mg/dL Calcium (8.4-10.2) mg/dL Total Bilirubin (0.2-1.3) mg/dL AST (17-59) U/L ALT (4-49) U/L Alkaline Phosphatase (38-126) U/L Total Protein (6.3-8.2) g/dL Albumin (3.5-5.0) g/dL Urine Color Yellow Urine Appearance Clear (Clear) Urine pH 6.0 (5.0-8.0) Ur Specific [place] 1.019 (1.001-1.035) Urine Protein 2+ H (Negative) Urine Glucose (UA) Negative (Negative) Urine Ketones Negative (Negative) Urine Blood Small H (Negative) Urine Nitrite Negative (Negative) Urine Bilirubin Negative (Negative) Urine Urobilinogen <2.0 (<2.0) mg/dL Ur Leukocyte Esterase Negative (Negative) Urine RBC 10 H (0-5) /hpf Urine WBC 3 (0-5) /hpf Ur Squamous Epith Cells <1 (0-4) /hpf Urine Mucus Moderate H (None) /hpf Influenza Type A (PCR) (Not Detectd) Influenza Type B (PCR) (Not Detectd) RSV (PCR) (Not Detectd) SARS-CoV-2 (PCR) (Not Detectd) Disposition Clinical Impression: Abdominal pain Disposition: HOME SELF-CARE Condition: Stable Instructions (If sedation given, give patient instructions): Hematuria (ED), Abdominal Pain (ED) Additional Instructions: Please call and schedule an appointment with Dr. Bains for sooner follow-up. Return to the emergency department for new or worsening symptoms. Follow-up with your primary care provider. Is patient prescribed a controlled substance at d/c from ED?: No Referrals: Anjel Swenson MD [Primary Care Provider] - 1-2 days
[2025-01-09] MEDS: KETOROLAC 15 MG/ML 1 ML VIAL IM STA (08:30)
--- NOTE | 2025-01-09 08:43 | CT ---
EXAMINATION TYPE: CT abdomen pelvis wo con CT DLP: 493.9 mGycm, Automated exposure control for dose reduction was used. DATE OF EXAM: 01/09/2025 8:22 AM COMPARISON: CT abdomen pelvis 09/22/2023, KUB radiograph 01/09/2025, MR kidney 02/15/2024, 10/08/2023 CLINICAL INDICATION:Male, 79 years old with history of right sided pain; Rt side pain, nausea. Pt sta aldo a new abx might have made him feel sick. TECHNIQUE: Standard CT of the abdomen and pelvis without IV or oral contrast. Lack of IV or oral co ntrast limits evaluation of solid and hollow organ viscera. Coronal and sagittal reformats were perfo rmed. FINDINGS: LOWER CHEST: Minimal subsegmental atelectasis is noted. Trace anterior pericardial effusion. At least moderate coronary arterial calcifications. ABDOMEN LIVER: Few stable scattered hypodense lesions most consistent with cysts. GALLBLADDER AND BILE DUCTS: Unremarkable noncontrast appearance PANCREAS: Unremarkable noncontrast appearance SPLEEN: Unremarkable noncontrast appearance ADRENAL GLANDS: Unremarkable noncontrast appearance. KIDNEYS AND URETERS: No evidence of hydronephrosis. Nonobstructive right renal form of metallic us. N onobstructive left renal 3 mm calculus. Enlarging anterior right renal heterogenous hyperdense lesion measuring 6.4 x 5.3 cm with some surrounding fat stranding. Previously measured 5.1 x 4.2 cm in prio r CT. There is curvilinear hyperdensity along the periphery of the right kidney which appears new fro m prior MR and CT. Measures approximately 1.7 cm in thickness. Hyperdense partially exophytic left re nal upper pole 2 lesions measuring 2.2 and 2.5 cm as seen on prior MR. PELVIS BLADDER: Incompletely distended but grossly unremarkable. REPRODUCTIVE: Coarse calcifications of the prostate gland are identified. Enlarged prostate gland myrtle suring 5.4 cm in transverse dimension. Partial visualization of left hydrocele. ABDOMEN & PELVIS STOMACH AND BOWEL: Stomach and duodenum are unremarkable. The cecum measures up to 6.3 cm. Moderate a mount of stool is present within the right colon. No focal transition point. Limited examination due to lack of intravenous and oral contrast. No evidence of bowel obstruction. PERITONEUM: No evidence of pneumoperitoneum or free fluid. VASCULATURE: Mild atherosclerotic calcifications are present throughout the abdominal aorta and its b ranches. No evidence of aortic aneurysm. MUSCULOSKELETAL: No acute osseous abnormalities. No aggressive osseous lesion. Multilevel degenerativ e disc disease. Couple of sacral Tarlov cysts. LYMPH NODES: No gross evidence for lymphadenopathy. SOFT TISSUE/ABDOMINAL WALL: Small fat filled umbilical hernia. Small fat filled bilateral inguinal he rnias. IMPRESSION: 1. Enlarging right renal heterogenous hyperdense mass measuring up to 6.4 cm when compared to prior MR 02/15/2024. Raises concern for renal cell carcinoma versus other renal neoplasms. There is new curv ilinear subcapsular hematoma involving the right kidney. 2. Redemonstration of 2 hyperdense left renal lesions from prior MR. Raises concern for possible jesús l cell carcinoma versus other renal neoplasms. 3. Nonobstructive bilateral renal calculi. 4. Moderate amount of stool is present within the right colon. 5. Prostatomegaly. [facility], , 01/09/2025 8:40 AM
[2025-01-09 09:23] VITALS: BP 149/81; PULSE 84; RESP 16; TEMP 98
[2025-01-09] MEDS: ACET/COD 300 MG/30 MG STARTER PACK 6 TAB BTL PO STA (09:33)
== END 2025-01-09 09:36 | disposition home or self-care (01) ==
LOC: EC 05:31
DX: R10.31 Right lower quadrant pain (principal)
CPT/HCPCS: 36415; 80053; 85025; 81001; 87636; 74018; 74176; 99284; 96372; J1885

== ENCOUNTER → 2025-03-08 | Outpatient (CLI) | payer MEDICARE ==
[2025-03-08 15:51] LABS: ALT 20 U/L (10-49); AST 30 U/L (14-35); Chol/HDL Ratio 4.09 Ratio; LDL Cholesterol,Calculated 140.2 mg/dL (0.0-131.0); VLDL Calculation 10.08 mg/dL (5.00-40.00)
== END | disposition home or self-care (01) ==
LOC: LABWHC1 08:02
PROVIDERS: ATTEND Internal Medicine Interventional Cardiology
DX: E78.2 Mixed hyperlipidemia (principal)
CPT/HCPCS: 36415; 80061; 84450; 84460

== ENCOUNTER 2025-03-27 14:27 | Emergency (ER) | payer MEDICARE ==
--- NOTE | 2025-03-27 15:36 | ED ---
General Adult HPI - General Chief complaint: Animal Bite Stated complaint: Tick bite Time Seen by Provider: 03/27/25 14:49 Source: patient, RN notes reviewed Mode of arrival: ambulatory Limitations: no limitations - History of Present Illness Initial comments: 80-year-old male presents to the emergency department for evaluation of blister on his left ankle. Patient notes that this started as an erythematous area that was pruritic. He notes that he put hydrocortisone cream on the area because of the itchiness. He noticed today that the area had started to blister. Patient is concerned that he may have gotten bitten by a tick although he did not see or remove any tick. He denies any fever or recent illness. He does note having a similar singular erythematous lesion on his right ankle. - Related Data Home Medications Medication Instructions Recorded Confirmed Garlic 1 each PO DAILY 08/20/21 08/20/23 Multivitamins, Thera [Multivitamin 1 tab PO DAILY 08/20/21 08/20/23 (formulary)] Saw [place] 500 mg PO DAILY 08/20/21 08/20/23 lisinopriL [Zestril] 5 mg PO QAM 08/20/21 08/20/23 Aspirin EC [Ecotrin Low Dose] 81 mg PO DAILY 08/06/22 08/20/23 Previous Rx's Medication Instructions Recorded Atorvastatin [Lipitor] 40 mg PO HS #90 tab 08/11/22 Clopidogrel [Plavix] 75 mg PO DAILY #90 tab 08/11/22 Nitroglycerin Sl Tabs [Nitrostat] 0.4 mg SUBLINGUAL Q5M PRN #25 tab 08/11/22 Mupirocin 2% Oint [Bactroban 2% 1 applic TOPICAL TID #22 gm 03/27/25 Oint] Allergies Allergy/AdvReac Type Severity Reaction Status Date / Time No Known Allergies Allergy Verified 03/27/25 14:31 Review of Systems ROS Statement: Those systems with pertinent positive or pertinent negative responses have been documented in the HPI. ROS Other: All systems not noted in ROS Statement are negative. Past Medical History Past Medical History: Hyperlipidemia, Hypertension Additional Past Medical History / Comment(s): high enzymes last blood drawn 08/11/23 History of Any Multi-Drug Resistant Organisms: None Reported Past Surgical History: Hernia Repair Additional Past Surgical History / Comment(s): 1991 rt inguinal hernia w/ mesh,nasal procedure Past Anesthesia/Blood Transfusion Reactions: No Reported Reaction Additional Past Anesthesia/Blood Transfusion Reaction / Comment(s): no hx blood transfusion Date of Last Stent Placement:: 2021 Past Psychological History: No Psychological Hx Reported Smoking Status: Never smoker - Past Family History Father Family Medical History: Myocardial Infarction ([place]) Mother Additional Family Medical History / Comment(s): enlarged heart General Exam Limitations: no limitations General appearance: alert, in no apparent distress Head exam: Present: atraumatic, normocephalic, normal inspection Eye exam: Present: normal appearance, PERRL, EOMI. Absent: scleral icterus, conjunctival injection, periorbital swelling ENT exam: Present: normal exam, mucous membranes moist Extremities exam: Present: full ROM, normal capillary refill. Absent: tenderness, pedal edema, joint swelling, calf tenderness Neurological exam: Present: alert, oriented X3 Psychiatric exam: Present: normal affect, normal mood Skin exam: Present: warm, dry, vesicles (Single vesicular lesion of the right medial ankle). Absent: intact Course Vital Signs 03/27/25 03/27/25 14:28 15:52 Temperature 97.7 F 97.8 F Pulse Rate 70 7 L Respiratory 18 16 Rate Blood Pressure 174/93 164/89 O2 Sat by Pulse 97 97 Oximetry Medical Decision Making - Medical Decision Making Was pt. sent in by a medical professional or institution (ENEIDA Saxena, COMMAND AND CONTROL SYSTEMS INTEGRATOR, urgent care, hospital, or usp...) When possible be specific @ -No Did you speak to anyone other than the patient for history (EMS, parent, family, police, friend...)? What history was obtained from this source @ -No Did you review nursing and triage notes (agree or disagree)? Why? @ -I reviewed and agree with nursing and triage notes Were old charts reviewed (outside hosp., previous admission, EMS record, old EKG, old radiological studies, urgent care reports/EKG's, usp records)? Report findings @ -No old charts were reviewed Differential Diagnosis (chest pain, altered mental status, abdominal pain women, abdominal pain men, vaginal bleeding, weakness, fever, dyspnea, syncope, headache, dizziness, GI bleed, back pain, seizure, CVA, palpatations, mental health, musculoskeletal)? @ -Contact dermatitis, shingles, atopic dermatitis, bullous pemphigus, this list is not all inclusive EKG interpreted by me (3pts min.). @ -None X-rays interpreted by me (1pt min.). @ -None done CT interpreted by me (1pt min.). @ -None done U/S interpreted by me (1pt. min.). @ -None done What testing was considered but not performed or refused? (CT, X-rays, U/S, labs)? Why? @ -None What meds were considered but not given or refused? Why? @ -None Did you discuss the management of the patient with other professionals (professionals i.e. Dr., PA, COMMAND AND CONTROL SYSTEMS INTEGRATOR, lab, RT, psych nurse, manager social, architectural inspector, teacher, business liaison officer, top case assembler)? Give summary @ -No Was smoking cessation discussed for >3mins.? @ -No Was critical care preformed (if so, how long)? @ -No Were there social determinants of health that impacted care today? How? (Homelessness, low income, unemployed, alcoholism, drug addiction, transportation, low edu. Level, literacy, decrease access to med. care, [facility], rehab)? @ -No Was there de-escalation of care discussed even if they declined (Discuss DNR or withdrawal of care, Hospice)? DNR status @ -No What co-morbidities impacted this encounter? (DM, HTN, Smoking, COPD, CAD, Cancer, CVA, ARF, Chemo, Hep., AIDS, mental health diagnosis, sleep apnea, morbid obesity)? @ -None Was patient admitted / discharged? Hospital course, mention meds given and route, prescriptions, significant lab abnormalities, going to OR and other pertinent info. @ -Discharge. Patient presented the emergency department for evaluation of rash on his ankle. Patient has a bullous lesion on his distal left medial ankle. He notes that he put hydrocortisone on a red pruritic area prior to arrival. He notes that after this the lesion became vesicular. Patient is concerned about a tick bite. I provided reassurance. I advised that the blister should not be manually unroofed but once it became unroofed on its own, he may apply antibiotic ointment to the area. Patient understanding agreeable plan. Patient stable at time of discharge. Case discussed with Dr. William. Undiagnosed new problem with uncertain prognosis? @ -No Drug Therapy requiring intensive monitoring for toxicity (Heparin, Nitro, Insulin, Cardizem)? @ -No Were any procedures done? @ -No Diagnosis/symptom? @ -Vesical Acute, or Chronic, or Acute on Chronic? @ -Acute Uncomplicated (without systemic symptoms) or Complicated (systemic symptoms)? @ -Uncomplicated Side effects of treatment? @ -No Exacerbation, Progression, or Severe Exacerbation? @ -No Poses a threat to life or bodily function? How? (Chest pain, [place], [place], pneumonia, PE, COPD, DKA, ARF, appy, cholecystitis, CVA, Diverticulitis, Homicidal, Suicidal, threat to staff... and all critical care pts) @ -No Disposition Clinical Impression: Vesicle of skin Disposition: HOME SELF-CARE Condition: Stable Instructions (If sedation given, give patient instructions): Acute Rash (ED) Additional Instructions: Please utilize antibiotic ointment 3 times daily after the blister erupts. Follow-up with your doctor. Return to the emergency department for new or worsening symptoms. Prescriptions: Mupirocin 2% Oint [Bactroban 2% Oint] 1 applic TOPICAL TID #22 gm Is patient prescribed a controlled substance at d/c from ED?: No Referrals: Anjel Swenson MD [Primary Care Provider] - 1-2 days
[2025-03-27 15:53] VITALS: BP 164/89; PULSE 7; RESP 16; TEMP 97.8
== END 2025-03-27 15:57 | disposition home or self-care (01) ==
LOC: EC 14:27
DX: R23.8 Other skin changes (principal); W57.XXXA Bitten or stung by nonvenomous insect and other nonvenomous arthropods, initial encounter
CPT/HCPCS: 99283